=== PATIENT | male | born 1980 | race Caucasian/White ===

== ENCOUNTER 2021-10-16 19:25 | Inpatient (IN) | payer SELFPAY ==
[2021-10-16] VITALS (7 sets, daily range): BP systolic 105–131; BP diastolic 69–93; PULSE 75–88; RESP 16–20; TEMP 36.6–36.8; O2SAT 99–100; BMI 31.8
--- NOTE | 2021-10-16 19:27 | ECG_ITS ---
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
[2021-10-16] MEDS: clopidogrel 300 mg Tablet 600 MG PO (19:31)
[2021-10-16] MEDS: aspirin 325 mg Tablet PO (19:31)
[2021-10-16] MEDS: heparin 5,000 unit/mL INJ 1 mL 4000 UNIT IVP (19:31)
[2021-10-16] MEDS: sodium chloride 0.9% 500 ML 999 ML IV (19:32)
[2021-10-16] MEDS: sodium chloride 0.9% 1,000 ML 999 ML IV (19:32)
--- NOTE | 2021-10-16 19:32 | ED_ITS ---
HPI - Chest Pain General: Chief Complaint: Chest Pain Stated Complaint: STEMI Time Seen by Provider: 10/16/21 19:27 Source: patient and EMS Mode of arrival: EMS Limitations: no limitations History of Present Illness: 41-year-old male is brought here by EMS for ST elevation MO and chest pain he states been having chest pain for the last 2 to 3 hours was seen in outside clinic had an EKG that showed an inferior STEMI. Patient's been given aspirin nitro states his pain is still there but is improved is now is a 2 out of 10 no history of heart disease no vomiting no shortness of breath. Associated symptoms: Deny abdominal pain, dyspnea, fever(s), nausea or vomiting Review of Systems Const: Denies: fever(s), chills, body aches or change in appetite Eyes: Denies: blurry vision or eye discomfort ENMT: Denies: throat pain or dental pain Card: Reports: chest pain Resp: Denies: dyspnea GI: Denies: abdominal pain, nausea, vomiting or diarrhea : Denies: dysuria Musc: Denies: neck pain or back pain Skin/Breast: Denies: rash Neuro: Denies: headache(s) Psych: Denies: depression Edwar/Lymph: Denies: easy bruising All/Imm: Denies: urticaria PFSH ED PFSH: Medical History (Updated 10/16/21 @ 19:33 by Izabela Watkins MD) No pertinent past medical history Social History (Updated 10/16/21 @ 19:32 by Izabela Watkins MD) Substance/Drug Use: never Physical Exam Const: COMMON NORMALS: patient oriented x3 GENERAL APPEARANCE: in distress HENMT: COMMON NORMALS: normocephalic and atraumatic HEAD & SCALP: normocephalic and atraumatic Eye: COMMON NORMALS: Equal, round and reactive pupils present and EOMs intact bilaterally PUPIL: Yes Equal, round and reactive pupils present Neck/C-Spine: COMMON NORMALS: full ROM and supple Chest: COMMONS NORMALS: normal inspection of the chest and normal palpation of entire chest wall Resp: COMMON NORMALS: normal respiratory effort, No retractions, No use of accessory muscles and clear to auscultation bilaterally AUSCULTATION: clear to auscultation bilaterally Cardio: COMMON NORMALS: regular rate, regular rhythm and No murmurs present (Cardio) RATE: regular rate RHYTHM: regular rhythm GI: COMMON NORMALS: Normal to inspection, nondistended, normoactive bowel sounds present, Soft to palpation, non-tender and no masses PALPATION: Yes Soft to palpation Extremity: COMMON NORMALS: normal to inspection and full ROM Neuro: COMMON NORMALS: patient oriented x3, moves all extremities and no focal motor deficits Psych: COMMON NORMALS: mental status grossly normal, Normal thought process present and cooperative THOUGHT PROCESS: Normal thought process present Skin: COMMON NORMALS: no rashes or lesions noted and no wounds GENERAL SKIN EXAM: no rashes or lesions noted Course Vital Signs: Vital signs: Vital Signs Temperature 97.9 F 10/16/21 19: Pulse Rate 81 10/16/21 19: Respiratory Rate 18 10/16/21 19: Blood Pressure 131/72 10/16/21 19: Pulse Oximetry 99 10/16/21 19:26 MDM - Chest Pain Medical Decision Making Patient presents here with an ST elevation MO Civil Preparedness Training Officer was here when patient arrived he did have a delay decision making is at first he was not sure if you want to go to the Civil Preparedness Training Officer but he did decide to go and they have taken him over to the Civil Preparedness Training Officer at this time Lab Data : 10/16/21 19:30 10/16/21 19:30 Laboratory Results WBC 20.9 10^3/uL (4.0-10.0) H 10/16/21 19:30 RBC 4.93 10^6/uL (4.1-5.3) 10/16/21 19:30 Hgb 14.3 g/dL (11.7-16.6) 10/16/21 19: Hct 44.1 % (42.0-52.0) 10/16/21 19:30 MCV 89.5 fl (80-94) 10/16/21 19: MCH 29.0 pg (28.0-34.0) 10/16/21 19: MCHC 32.4 g/dL (30.0-36.0) 10/16/21 19:30 RDW 12.7 % (12.1-15.1) 10/16/21 19:30 Plt Count 453 10^3/cmm (130-400) H 10/16/21 19: MPV 9.5 fL (7.4-10.4) 10/16/21 19: Neut % (Auto) 85.9 % 10/16/21 19:30 Lymph % (Auto) 8.8 % 10/16/21 19:30 Keith % (Auto) 4.4 % 10/16/21 19:30 Eos % (Auto) 0.1 % 10/16/21 19:30 Baso % (Auto) 0.3 % 10/16/21 19: Neut # (Auto) 17.94 10^3/uL (1.8-7.7) H 10/16/21 19:30 Lymph # (Auto) 1.8 10^3/uL (0.8-4.8) 10/16/21 19: Keith # (Auto) 0.9 10^3/uL (0.2-0.9) 10/16/21 19: Eos # (Auto) 0.0 10^3/uL (0.0-0.8) 10/16/21 19: Baso # (Auto) 0.1 10^3/uL (0.0-0.1) 10/16/21 19: Nucleated RBC % (auto) 0 % 10/16/21 19: Nucleated RBCs # 0.0 /100WBC 10/16/21 19: POC Glucose 97 mg/dL (70-110) 10/16/21 19:30 Discharge Plan Discharge Patient Disposition: Admitted As Inpatient Clinical Impression: ST elevation myocardial infarction (STEMI) Qualifiers: Involved coronary artery: unspecified coronary artery Qualified Code(s): I21.3 - ST elevation (STEMI) myocardial infarction of unspecified site Coding Level of Care Code ED Bridal Sales Consultant for Christiano Fwd Exam Comprehensive
[2021-10-16 19:34] LABS: Glucose Point of Care 97 mg/dL (70-110)
--- NOTE | 2021-10-16 19:35 | XACV_ITS ---
Exam Room: 2 Ht: 185 cm Wt: 109 kg BSA: 2.40 m2 Gender: Male : 1980 Exam Priority: Routine Procedure(s): Procedure Description: Diagnostic procedure Procedure Description: PCI procedure Procedure Description: Drug Eluting Coronary Stent Procedure Description: PTCA Procedure Description: Miscellaneous Procedure Description: ACT Procedure Description: Coronary Angiography Diagnostic Cath Status: Emergency Diagnostic Findings * Left Main has no significant disease. * Left Anterior Descending has no significant disease. * Circumflex is patent. Large sized ramus artery is free of any significant disease. * Mid Right Coronary Artery: total thrombotic occlusion, PARI: 0 flow. This is the culprit vessel for STEMI. * Coronary angiography shows right dominance. PCI Status: Emergency PCI Indication: STEMI - Immediate PCI for STEMI Interventional Findings * Procedure detail: We engaged RCA with a JR4 guide catheter. IV heparin was administered to maintain ACT above 250 S. 0.014 run-through guidewire was used to cross the totally occluded mid RCA vessel. We predilated the stenosis with 2.5 x 12 mm semi compliant balloon. This was followed by placement of 4.0 x 18 mm resolute Corby drug-eluting stent. At this time final angiogram was performed that showed excellent stent expansion and no residual stenosis and PARI-3 flow. Guidewire and guide catheter were removed and patient left the Veterinary Inspector in a stable condition.. * Mid Right Coronary Artery: 100% stenosis treated with a AB TREK 2.50X12 RX BALLOON, and MDT R CORBY 4.0X18 LEV. 0% residual stenosis, PARI: 3 flow. Conclusions 1. Total thrombotic occlusion of mid RCA. 2. This is culprit vessel for ST elevation [place] 3. . S/p successful revascularization with LEV x1.. 4. Mid Right Coronary Artery was treated with a Balloon, and Drug Eluting Stent. Recommendations * Transfer to [facility]. * Aspirin and Plavix for at least 1 year. * High intensity statin therapy. * Beta-sari and CLARA inhibitor therapy. * Cardiac rehab referral. Interventional RX Recommendation: PCI w/o planned CABG Diagnostic RX Recommendation: PCI w/o planned CABG Anticoagulation: Heparin Pressures Phase:Rest AO : 135 / 90 ( 112 ) @ 3:25:06 PM 123 / -32 ( 46 ) @ 3:25:06 PM 71 / 45 ( 56 ) @ 3:25:06 PM 86 / 59 ( 76 ) @ 3:25:06 PM 96 / 67 ( 81 ) @ 3:25:06 PM Clinical Evaluation EBL: 5mL-10mL Procedural Details Pre-Procedure Time Out. Identified patient by full name and date of as verbalized by the patient/guarantor. Does the consent match the physician's order: Yes. Inpatient/Outpatient History & Physical on Chart: N/A Emergent. If H&P is completed, is and addenduem needed: N/A; If yes, is the addendum complete: N/A. Accurate & Complete Informed Consent: N/A Emergent; Informed Consent not obtained due to time critical life threat. Visualize and Verify Site with Patient/Guarantor: N/A. Relevant Radiology Images available: N/A. The risks, benefits, and alternatives of sedation and/or procedure were discussed by physician. The patient agrees to continue. Procedure started. Admit Source: Emergency department. [facility] Clinical Fraility Score: 2: Well. Veterinary Inspector Indications: New Onset Angina. Chest Pain Symptom Assessment: Typical Angina Symptoms. Correct patient, site and procedure confirmed by cath team. Current diagnosis: STEMI. PERRLA. Strong, equal hand natural resource manager bilaterally. Lungs clear x 5 lobes. IV Site on Arrival: 18 gauge in the left anticubital. IV Fluids: 0.9% NaCl at KVO. 0 mL infused prior to cath laboratory technician. Pre Procedural Pulses: right radial was 3+. Pre Procedural Pulses: right dorsalis pedis was 2+. Oxygen started at 2liters/min via nasal canula. right groin was prepped with chloroprep then draped in the usual sterile fashion. right radial was prepped with chloroprep then draped in the usual sterile fashion. Physician notified. Baseline sample Acquired. HR: 98 BPM. Physician arrived. Physician scrubbed in. Immediate Pre-Procedure Time Out. Correct Patient: Yes; Correct Procedure: Yes; Correct Site: Yes; Correct Patient Position: Yes; Correct Supplies: Yes; Dried Flammable Prep: Yes; Blood Products Available: N/A. Lidocaine 1% infiltrated to the right radial. Arterial access obtained. Delay in PCI related to initial patient/family refusal of transfer to cath laboratory technician. 6 angolan JR 4 guide catheter was inserted over the wire. Multiple views taken of right coronary artery. Runthrough guidewire was advanced through the guide catheter to lesion in the mid RCA. Inflation number : 1 A AB TREK 2.50X12 RX BALLOON was prepped and advanced across the Mid RCA , then inflated to 12 DEREK for 0:14 seconds. Balloon out. Balloon inserted to lesion in the mid RCA. Stent inserted to lesion in the mid RCA. Inflation Number : 2 A FARIDA Fraga CORBY 4.0X18 LEV -Lot Number# [id number] Exp was prepped and advanced across the Mid RCA. The stent was deployed at 12 DEREK for 0:22 seconds. Stent balloon out over wire. Results checked. Wire out. Guide catheter out. ACT drawn. Results 362 seconds. Therapeutic limits - pre-heparin administration 90-150 seconds and monitoring heparin during a vascular procedure >250 seconds. A 5 angolan TIG catheter in over wire. AP pads applied to patient chest. Multiple views taken of left coronary artery. Catheter and wire out. A TR Band was successful obtaining hemostatsis at the Right Radial artery insertion site. Physician scrubbed out. Post Procedure: Pulses reassessed and unchanged. PERRLA. Strong, equal hand natural resource manager bilaterally. No VTE prophylaxis required. Medication's Wasted: Lidocaine 1% = 8 mL. Medication's Wasted: Nitro = 50 mg. Post-op diagnosis: Inferior wall STEMI. PCI Indication: STEMI. Total IV fluids: 100 mL. Complications: none. Estimated blood loss: 5mL-10mL. Responsiveness - Normal response to verbal stimuli; alert and oriented, PERRLA. Airway - Unaffected, no intervention required; spontaneous ventilation. Circulation: W/N/L, pulses unchanged. Nausea/Vomiting: No. Procedure completed. Patient transferred by wheelchair to 1st floor. Vital chart was stopped. Access Site Site: Right Radial artery Sheath Size: 6 Fr Hemostasis Method: TR Band Hemostasis Success: Successful Procedure Medications Start: 7:47 PM Stop: 7:47 PM Medication: Versed Amount: 1 mg Route: I.V. Start: 7:47 PM Stop: 7:47 PM Medication: Fentanyl Amount: 50 mcg Route: I.V. Start: 7:49 PM Stop: 7:49 PM Medication: 0.9% Saline Amount: 75 ml/hr Start: 7:54 PM Stop: 7:54 PM Medication: Versed Amount: 1 mg Route: I.V. Start: 7:54 PM Stop: 7:54 PM Medication: Fentanyl Amount: 50 mcg Route: I.V. Start: 7:55 PM Stop: 7:55 PM Medication: Heparin Amount: 6000 units Route: I.V. Start: 7:55 PM Stop: 7:55 PM Medication: Versed Amount: 1 mg Route: I.V. Start: 7:57 PM Stop: 7:57 PM Medication: Versed Amount: 1 mg Route: I.V. Start: 8:03 PM Stop: 8:03 PM Medication: Zofran (ondansetron) Amount: 4 mg Route: I.V. Start: 8:06 PM Stop: 8:06 PM Medication: Aggrastat 12.5 mg/250 mL Amount: 55 ml Route: I.V. bolus Start: 8:07 PM Stop: 8:07 PM Medication: Aggrastat 12.5 mg/250 mL Amount: 19.8 ml/hr Route: I.VMatteo horne I, the attending physician, have reviewed and verified all procedure medications. Yes, all medications given per verbal order Report Signatures Finalized by Titus Cote MD on 11/02/2021 09:35 PM
[2021-10-16 19:40] LABS: Basophils # 0.1 10^3/uL (0.0-0.1); Basophils % 0.3 %; Eosinophils % 0.1 %; Hematocrit 44.1 % (42.0-52.0); Hemoglobin 14.3 g/dL (11.7-16.6); Lymphocytes # 1.8 10^3/uL (0.8-4.8); Lymphocytes % 8.8 %; Mean Corpuscular HGB Conc 32.4 g/dL (30.0-36.0); Mean Corpuscular Volume 89.5 fl (80-94); Mean Platelet Volume 9.5 fL (7.4-10.4); Monocytes # 0.9 10^3/uL (0.2-0.9); Monocytes % 4.4 %; Neutrophils # 17.94 10^3/uL (1.8-7.7); Neutrophils % 85.9 %; Nucleated Red Blood Cells % 0 %; Platelet Count 453 10^3/cmm (130-400); Red Blood Count 4.93 10^6/uL (4.1-5.3); Red Cell Distribution Width 12.7 % (12.1-15.1); White Blood Count 20.9 10^3/uL (4.0-10.0)
--- NOTE | 2021-10-16 19:58 | PC.NURSE ---
late note, 1929 pt was late going to laboratory apparatus glass grinder due to pt delay on whether or not to have procedure or not even upon both ER doctor and Emergency Medicine Nurse Practitioner recommendation. Pt had a 15 minute delay per pt prior to deciding to go have procedure and leaving for laboratory apparatus glass grinder at 1937.
[2021-10-16 20:03] LABS: Troponin(5th) Baseline 83 ng/L (0-15)
[2021-10-16 20:08] LABS: Alanine Aminotransferase 28 U/L (0-41); Albumin Level 4.5 g/dL (3.5-5.2); Alkaline Phosphatase 135 IU/L (40-130); Anion Gap 16.9 (5-19); Aspartate Amino Transferase 27 U/L (0-40); Blood Urea Nitrogen 11 mg/dL (6-20); Calcium 8.6 mg/dL (8.5-10.5); Carbon Dioxide 22 mmol/L (22-29); Chloride 101 mmol/L (98-107); Globulin 3.4 g/dL (1.3-4.6); Glomerular Filtration Rate 92.1 mL/min (90-130); Glucose 107 mg/dL (65-115); Osmolality Calculated 282 mOsm/kg (285-295); Potassium 3.9 mmol/L (3.5-5.1); Sodium 136 mmol/L (136-145); Total Bilirubin 0.3 mg/dL (0.15-1.2); Total Protein 7.9 g/dL (6.6-8.7)
--- NOTE | 2021-10-16 20:21 | P.HP_ITS ---
Providers/Chief Complaint Admitting Physician: Titus Cote MD Chief Complaint: STEMI History of Present Illness Avelino Lam is a 41 year old male with a past medical history of tobacco abuse and hypertension presented with few hours of chest discomfort radiating to the jaw and the ears. According to patient he had been having on and off symptoms of jaw discomfort for the last few days. Today it got worse. EMS performed EKG that showed acute inferior wall ST elevation FL. Patient was emergently brought to the ER. Patient did have some reservations about undergoing coronary angiogram and PCI however after talking with the family he decided to proceed with it. Coronary angiography showed totally occluded mid RCA. He underwent successful revascularization with LEV x1. Review of Systems Const: Denies: fever(s), chills, body aches or change in appetite Eyes: Denies: blurry vision or eye discomfort ENMT: Denies: throat pain or dental pain Card: Reports: chest pain Resp: Denies: dyspnea GI: Denies: abdominal pain, nausea, vomiting or diarrhea : Denies: dysuria Musc: Denies: neck pain or back pain Skin/Breast: Denies: rash Neuro: Denies: headache(s) Psych: Denies: depression Edwar/Lymph: Denies: easy bruising All/Imm: Denies: urticaria Medications/Allergies Allergies Allergy/AdvReac Type Severity Reaction Status Date / Time No Known Allergies Allergy Verified 10/16/21 19:30 PFSH Acute PFSH: Medical History Hypertension No pertinent past medical history Tobacco abuse Family History Other CAD (coronary artery disease) Social History Smoking and tobacco status: current every day smoker Substance/Drug Use: never Vitals/I&O/Wt Last Vital Signs Temp 97.9 F 10/16/21 19:26 Pulse 81 10/16/21 19:26 Resp 18 10/16/21 19:26 BP 131/72 10/16/21 19:26 Pulse Ox 99 10/16/21 19:26 Weight last 48 hrs Weight 241 lb Physical Exam Narrative: GENERAL: Patient is alert, awake and oriented x3. [] NECK: No jugular vein distension. [] HEENT: No cyanosis. No icterus. No pallor. [] HEART: Regular S1 and S2. No murmur, rub or gallop. [] LUNGS: Clear to auscultate bilaterally. [] ABDOMEN: Soft, nontender and nondistended. Positive bowel sounds. No guarding, rebound or tenderness. [] CENTRAL NERVOUS SYSTEM: Grossly nonfocal. [] EXTREMITIES: Lower extremities with no edema bilaterally. Pulses palpable in the lower extremities, both dorsalis pedis and posterior tibial. [] Data : 10/16/21 19:30 10/16/21 19:30 A&P Assessment and plan (1) ST elevation myocardial infarction (STEMI): Status: Acute Qualifiers: Involved coronary artery: unspecified coronary artery Qualified Code(s): I21.3 - ST elevation (STEMI) myocardial infarction of unspecified site (2) Hypertension: Status: Acute (3) Tobacco abuse: Status: Acute Plan Patient presented with acute inferior wall ST elevation FL. He underwent emergent coronary angiogram and is s/p successful revascularization with LEV x1. Patient's procedure was delayed by about 10 minutes as he initially was not sure if he wants to proceed with it. After speaking with the family, he decided to proceed. Aspirin and Plavix for atleast 1 year High intensity statin therapy Beta sari and Lisinopril Continue aggrastat for 6 hours Order echocardiogram Transfer to [facility] Attestations Medical Necessity Statement*: Care expected to cross 2 midnights. Patient had presented with acute inferior wall ST elevation FL and is status post revascularization with LEV x1. Coding Level of Care Code Acute Manager Of Transportation for Christiano Kirkpatrick Diagnoses ST elevation myocardial infarction (STEMI) I21.3 Involved coronary artery: unspecified coronary artery Hypertension I10 Tobacco abuse Z72.0
--- NOTE | 2021-10-16 21:27 | ECG_ITS ---
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 Measurements Intervals [place] Rate: 76 P: 44 ME: 152 QRS: -16 QRSD: 92 T: -28 QT: 359 QTc: 406 Interpretive Statements SINUS RHYTHM WITH OCCASIONAL SUPRAVENTRICULAR PREMATURE COMPLEXES MODERATE VOLTAGE CRITERIA FOR LVH, CONSIDER NORMAL VARIANT [MEETS CRITERIA IN ONE OF: R(aVL), S(V1), R(V5), R(V5/V6)+S(V1)] Compared to ECG 10/16/2021 21:24:44 No significant changes Electronically Signed On 10-17-2021 20:47:28 CDT by Titus Cote M.D. [id number]
[2021-10-16] MEDS: tirofiban 5 MG/100 ML PREMIX 19.8 MG IV (21:39)
[2021-10-16] MEDS: metoprolol tartrate 25 mg Tablet PO (21:39)
[2021-10-16] MEDS: sodium chloride 0.9% 1,000 ML 100 ML IV (21:39)
[2021-10-16] MEDS: atorvastatin 40 mg Tablet 80 MG PO (21:39)
[2021-10-17] VITALS (22 sets, daily range): BP systolic 91–112; BP diastolic 58–82; PULSE 72–86; RESP 7–37; O2SAT 96–99
--- NOTE | 2021-10-17 01:27 | ECG_ITS ---
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 Measurements Intervals [place] Rate: 78 P: 39 [place]: 166 QRS: -21 QRSD: 92 T: -28 QT: 361 QTc: 414 Interpretive Statements SINUS RHYTHM WITH OCCASIONAL SUPRAVENTRICULAR PREMATURE COMPLEXES MINIMAL VOLTAGE CRITERIA FOR LVH, CONSIDER NORMAL VARIANT [MEETS CRITERIA IN ONE OF: R(aVL), S(V1), R(V5), R(V5/V6)+S(V1)] Compared to ECG 10/16/2021 21:25:25 No significant changes Electronically Signed On 10-17-2021 20:44:39 CDT by Titsu Cote M.D. [id number]
--- NOTE | 2021-10-17 01:28 | USCV_ITS ---
Avelino Lam Age: 41 Gender: M : 1980 Exam Date: 10/17/2021 01:37 Ordering Phys: Titus Cote M.D ([email or web address]) Technologist: ASHA Exam Location: [facility] Indication: Post SC BP: 108 / 81 HR: 76 Rhythm: Sinus Technical Quality: Adequate MEASUREMENTS (Male / Female) Normal Values 2D ECHO LV Diastolic Diameter PLAX 5.1 cm 4.2 - 5.9 / 3.9 - 5.3 cm LV Systolic Diameter PLAX 4.0 cm IVS Diastolic Thickness 0.9 cm 0.6 - 1.0 / 0.6 - 0.9 cm IVS Systolic Thickness 1.7 cm LVPW Diastolic Thickness 1.4 cm 0.6 - 1.0 / 0.6 - 0.9 cm LVPW Systolic Thickness 1.4 cm LVOT Diameter 2.0 cm LV Ejection Fraction 2D Teich 42.3 % LV Ejection Fraction MOD 2C 32.5 % LV Ejection Fraction 2C AL 31.1 % LA Diameter 3.3 cm LA Width 3.3 cm LA Height 6.6 cm RA Width 2.9 cm RA Height 3.8 cm Aorta at Sinotubular Diameter 2.8 cm IVC Diameter 2.0 cm M-MODE Aortic Annulus Diameter 3.5 cm LA Ao Ratio MM 1.2 MV E Point Septal Separation 0.1 cm DOPPLER AV Peak Velocity 110.3 cm/s LVOT Peak Velocity 74.0 cm/s AV Area Cont Eq vti 2.1 cm squared AV Area Cont Eq pk 2.1 cm squared MV Peak Velocity 78.0 cm/s MV Area PHT 3.6 cm squared Mitral E to A Ratio 0.9 MV E' Velocity 38.0 cm/s Mitral E to MV E' Ratio 5.9 Mitral E to LV E' Lateral Ratio 5.0 Mitral E to LV E' Septal Ratio 7.4 TR Peak Velocity 80.5 cm/s TR Peak Gradient 2.6 mmHg TR Mean Velocity 51.0 cm/s TR Mean Gradient 1.2 mmHg TR Velocity Time Integral 12.3 cm Right Atrial Pressure 10.0 mmHg Pulmonary Artery Systolic Pressu 12.6 mmHg PV Peak Velocity 87.0 cm/s RV Acceleration Time 0.1 s RV Ejection Time 0.3 s RV AcT/ET 0.4 FINDINGS Left Ventricle Normal left ventricular size. LV systolic function is mildly reduced with EF of 40-45%. Mild to moderate hypokinesis of inferior and inferolateral webster. Diastolic function is normal Right Ventricle The right ventricle is normal in size and function. Right Atrium The right atrium is normal in size. Left Atrium The left atrium is normal in size. Mitral Valve Grossly normal. There is no mitral regurgitation. Aortic Valve Grossly normal. No significant stenosis. There is no aortic regurgitation. Tricuspid Valve Structurally normal tricuspid valve without significant stenosis . Trace tricuspid regurgitation. Pulmonary artery systolic pressure is normal. Pulmonic Valve Not visualized. Pericardium Normal pericardium without effusion. Aorta Normal ascending aorta dimension. CONCLUSIONS Technically limited quality echocardiogram because of poor ultrasonic windows LV systolic function is mildly reduced with EF of 40-45%. Mild to moderate hypokinesis of the inferior and inferolateral webster Diastolic function is normal Trace tricuspid regurgitation No comparison studies are available Titus Cote MD (Electronically Signed) Final Date: 18 Oct 2021 12:29 S
--- NOTE | 2021-10-17 04:15 | PC.NURSE ---
TR band removed at 0100 from right wrist. Dressing applied. No bleeding or hematoma noted. VSS. Patient educated on post-cath activity restrictions and care and verbalized understanding.
[2021-10-17 04:49] LABS: Basophils # 0.1 10^3/uL (0.0-0.1); Basophils % 0.6 %; Eosinophils # 0.3 10^3/uL (0.0-0.8); Hematocrit 43.2 % (42.0-52.0); Hemoglobin 13.1 g/dL (11.7-16.6); Lymphocytes # 3.5 10^3/uL (0.8-4.8); Mean Corpuscular HGB Conc 30.3 g/dL (30.0-36.0); Mean Corpuscular Hemoglobin 28.9 pg (28.0-34.0); Mean Corpuscular Volume 95.4 fl (80-94); Mean Platelet Volume 9.6 fL (7.4-10.4); Monocytes # 1.2 10^3/uL (0.2-0.9); Monocytes % 8.9 %; Neutrophils # 8.72 10^3/uL (1.8-7.7); Nucleated Red Blood Cells % 0 %; Platelet Count 395 10^3/cmm (130-400); Red Blood Count 4.53 10^6/uL (4.1-5.3); White Blood Count 13.9 10^3/uL (4.0-10.0)
[2021-10-17 05:23] LABS: Anion Gap 14.8 (5-19); Blood Urea Nitrogen 11 mg/dL (6-20); Calcium 8.5 mg/dL (8.5-10.5); Carbon Dioxide 20 mmol/L (22-29); Chloride 107 mmol/L (98-107); Glomerular Filtration Rate 105.5 mL/min (90-130); Glucose 118 mg/dL (65-115); Osmolality Calculated 286 mOsm/kg (285-295); Potassium 3.8 mmol/L (3.5-5.1); Sodium 138 mmol/L (136-145)
[2021-10-17] MEDS: clopidogrel 75 mg Tablet PO (08:24)
[2021-10-17] MEDS: aspirin 81 mg EC Tablet PO (08:24)
[2021-10-17] MEDS: metoprolol tartrate 25 mg Tablet PO (08:24)
[2021-10-17] MEDS: lisinopril 5 mg Tablet PO (08:24)
--- NOTE | 2021-10-17 08:25 | P.PN_ITS ---
Vitals/I&O/Wt Last Vital Signs Temp 98.2 F 10/16/21 20:32 Pulse 80 10/17/21 04:59 Resp 18 10/17/21 04:15 BP 107/78 10/17/21 04:15 Pulse Ox 96 10/17/21 04:15 10/16/21 10/17/21 10/17/21 22:59 06:59 14:59 Intake Total 1500 / 1500 1100 / 2600 Balance 1500 / 1500 1100 / 2600 Weight last 48 hrs Weight 241 lb Data : 10/17/21 04:20 10/17/21 04:20 Coding Level of Care Code Acute Glass Rolling Machine Operator for Chg Casimiro
--- NOTE | 2021-10-17 10:03 | PC.CHAP ---
Pastoral Care Encounter/Spiritual Assessment Type of Contact [] Declined housing quality standard inspector visit [] Patient/Family/Request visit [] Outpatient visit [] Follow-up visit [] Physician referral [] Code/Alert [x] Routine visit [] Staff referral [] Actively dying [] Patient sleeping [] Family support [] [] Out of room [] Palliative care [] [x] Receiving care in room [] Pre-surgical visit [] Trauma [] Long length of stay [] ICU visit [] Other: Relational/Emotional Strength [] Patient feels connected with others/family/visitors/staff [] Distress [] Loneliness/isolation [] Abandonment Spirituality of Patient [] Person of Martina [] Attends Taoism of their Martina [] Believes in Prayer [] Reads Bible or Moravian materials [] There are Spiritual issues to be addressed Child Development Professor Interventions [x] Prayer [] Active listening [] Non-anxious presence [] Spiritual/emotional support [] Crisis/trauma care [] Spiritual counseling [] Bereavement support [] Provided bereavement packet [] Provided Bible/devotional materials [] Provided toy/stuffed animal, coloring book to patient or family member [] Provided Communion [] Anointing/[place] [] Salvation [x] Completed spiritual assessment [] Other: Impact on Illness or Injury [] Angry [] Fearful [] Anxious [] Often cries [] Exhaustion [] Unable to work [] Unable to attend yazidism [] Unable to walk/stand [] Unable to read [] Unable to drive [] Unable to eat/drink [] Unable to sleep [] Unable to be with family [] Patient intubated [] Other: Summary Time spent with patient
--- NOTE | 2021-10-17 15:50 | P.DS_ITS ---
Discharge Providers Date of Admission: 10/16/21 21:00 Date of Discharge: October 17, 2021 Attending Provider at Admission: Titus Cote M.D Attending Provider at Discharge: Titus Cote M.D Diagnoses at Discharge Discharge Diagnosis (1) ST elevation myocardial infarction (STEMI): Qualifiers: Involved coronary artery: unspecified coronary artery Qualified Code(s): I21.3 - ST elevation (STEMI) myocardial infarction of unspecified site (2) Hypertension: Status: Acute (3) Tobacco abuse: Status: Acute Reason for Visit Reason for Visit: STEMI Brief History: ?41 year old male with a past medical history of tobacco abuse and hypertension presented with few hours of chest discomfort radiating to the jaw and the ears.? According to patient he had been having on and off symptoms of jaw discomfort for the last few days.? Today it got worse.? EMS performed EKG that showed acute inferior wall ST elevation LA.? Patient was emergently brought to the ER.? Hospital Course Hospital Course ?41 year old male with a past medical history of tobacco abuse and hypertension presented with few hours of chest discomfort radiating to the jaw and the ears.? According to patient he had been having on and off symptoms of jaw discomfort for the last few days.? Today it got worse.? EMS performed EKG that showed acute inferior wall ST elevation LA.? Patient was emergently brought to the ER.? Patient did have some reservations about undergoing coronary angiogram and PCI however after talking with the family he decided to proceed with it.? Coronary angiography showed totally occluded mid RCA.? He underwent successful revascularization with LEV x1. Patient was stable post PCI. Echocardiogram showed mildly reduced LV systolic function. Plan was to keep him for 1 more day however he wanted to go home and was stable. Was discharged home in a stable condition on dual antiplatelet therapy and outpatient cardiology follow-up. Physical Exam Narrative: GENERAL: Patient is alert, awake and oriented x3. [] NECK: No jugular vein distension. [] HEENT: No cyanosis. No icterus. No pallor. [] HEART: Regular S1 and S2. No murmur, rub or gallop. [] LUNGS: Clear to auscultate bilaterally. [] ABDOMEN: Soft, nontender and nondistended. Positive bowel sounds. No guarding, rebound or tenderness. [] CENTRAL NERVOUS SYSTEM: Grossly nonfocal. [] EXTREMITIES: Lower extremities with no edema bilaterally. Pulses palpable in the lower extremities, both dorsalis pedis and posterior tibial. [] Discharge Data Studies Completed and Pending Pending at discharge Category Date Time Status [employer] request for service Stat Exams 10/16/21 19:35 Taken Basic Metabolic Panel AM LABS Lab 10/18/21 04:00 Ordered Basic Metabolic Panel AM LABS Lab 10/19/21 04:00 Ordered Complete Blood Count w/Auto AM LABS Lab 10/18/21 04:00 Ordered Complete Blood Count w/Auto AM LABS Lab 10/19/21 04:00 Ordered CV. echo complete* [id number] Routine Ultrasound 10/17/21 01:28 Taken Laboratory Results WBC 13.9 10^3/uL (4.0-10.0) H 10/17/21 04:20 RBC 4.53 10^6/uL (4.1-5.3) 10/17/21 04:20 Hgb 13.1 g/dL (11.7-16.6) 10/17/21 04:20 Hct 43.2 % (42.0-52.0) 10/17/21 04:20 MCV 95.4 fl (80-94) H D 10/17/21 04:20 MCH 28.9 pg (28.0-34.0) 10/17/21 04:20 MCHC 30.3 g/dL (30.0-36.0) D 10/17/21 04:20 RDW 13.0 % (12.1-15.1) 10/17/21 04:20 Plt Count 395 10^3/cmm (130-400) 10/17/21 04:20 MPV 9.6 fL (7.4-10.4) 10/17/21 04:20 Neut % (Auto) 63.0 % 10/17/21 04:20 Lymph % (Auto) 25.0 % 10/17/21 04:20 [place] % (Auto) 8.9 % 10/17/21 04:20 Eos % (Auto) 2.0 % 10/17/21 04:20 Baso % (Auto) 0.6 % 10/17/21 04:20 Neut # (Auto) 8.72 10^3/uL (1.8-7.7) H 10/17/21 04:20 Lymph # (Auto) 3.5 10^3/uL (0.8-4.8) 10/17/21 04:20 [place] # (Auto) 1.2 10^3/uL (0.2-0.9) H 10/17/21 04:20 Eos # (Auto) 0.3 10^3/uL (0.0-0.8) 10/17/21 04:20 Baso # (Auto) 0.1 10^3/uL (0.0-0.1) 10/17/21 04:20 Nucleated RBC % (auto) 0 % 10/17/21 04:20 Nucleated RBCs # 0.0 /100WBC 10/17/21 04:20 Sodium 138 mmol/L (136-145) 10/17/21 04:20 Potassium 3.8 mmol/L (3.5-5.1) 10/17/21 04:20 Chloride 107 mmol/L (98-107) 10/17/21 04:20 Carbon Dioxide 20 mmol/L (22-29) L 10/17/21 04:20 Anion Gap 14.8 (5-19) 10/17/21 04:20 BUN 11 mg/dL (6-20) 10/17/21 04:20 Creatinine 0.8 mg/dL (0.7-1.2) 10/17/21 04:20 GFR Calculation 105.5 mL/min (90-130) 10/17/21 04:20 Glucose 118 mg/dL (65-115) H 10/17/21 04:20 POC Glucose 97 mg/dL (70-110) 10/16/21 19:30 Calculated Osmolality 286 mOsm/kg (285-295) 10/17/21 04:20 Calcium 8.5 mg/dL (8.5-10.5) 10/17/21 04:20 Total Bilirubin 0.3 mg/dL (0.15-1.2) 10/16/21 19:30 AST 27 U/L (0-40) 10/16/21 19:30 ALT 28 U/L (0-41) 10/16/21 19:30 Alkaline Phosphatase 135 IU/L (40-130) H 10/16/21 19:30 Troponin T Baseline 83 ng/L (0-15) H 10/16/21 19:30 Total Protein 7.9 g/dL (6.6-8.7) 10/16/21 19:30 Albumin 4.5 g/dL (3.5-5.2) 10/16/21 19:30 Globulin 3.4 g/dL (1.3-4.6) 10/16/21 19:30 Vitals Last Vital Signs Temp 98.2 F 10/16/21 20:32 Pulse 78 10/17/21 14:00 Resp 13 10/17/21 08:00 BP 112/68 10/17/21 08:00 Pulse Ox 96 10/17/21 04:15 Discharge Plan Discharge Patient Disposition: Home Condition: Stable Prescriptions: New atorvastatin 40 mg Tablet 80 mg PO BEDTIME Qty: 90 3RF clopidogrel 75 mg Tablet 75 mg PO DAILY Qty: 90 3RF aspirin 81 mg Tablet,Delayed Release (Dr/Ec) 81 mg PO DAILY Qty: 90 3RF lisinopril 5 mg Tablet 5 mg PO DAILY Qty: 90 3RF metoprolol tartrate 25 mg Tablet 25 mg PO BID@0900,2100 Qty: 90 3RF Discharge Orders: Discharge Order (Routine); Ordered 10/17/21 Ordered By: Titus Cote Referrals: Titus Cote M.D [Physician] - 1 month ([facility] will be calling to schedule a cardiology followup with Dr. Cote to be seen in approx 1 month, If you don't hear from them by Wednesday afternoon, pleasee give them a call. Thank you) Rosa Bell FNP [Nurse Practitioner] - 7-10 days ([facility] will be calling to schedule a post procedure followup with LACEY Jim to be seen in 7 to 10 days, If you don't hear from them by Wednesday afternoon, pleasee give them a call. Thank you) Discharge Diet: Cardiac Discharge Activity: Increase activity as tolerated Patient Instructions: Metoprolol (By mouth) (Lopressor, Toprol XL), Lisinopril (By mouth) (Prinivil, Zestril), Aspirin (By mouth) (Ricardo Extra Strength, Ricardo Aspirin Children's,..., Atorvastatin (By mouth) (Lipitor), Clopidogrel (By mouth) (Plavix), Coronary Angioplasty (DC) Activity Restrictions/Additional Instructions: Please do not lift more than 5-10 pounds of weight for the next 5 days Discharge Attestations Time Spent in Discharge Care*: greater than 30 min Quality Metrics Clinical Quality Measures [ Acute Myocardial Infaction { Clinical Trial Participant: No; Contraindication to aspirin: None; Aspirin prescribed; Contraindication to statin: None; Statin prescribed; Contraindication to PCI: None; PCI performed;}] Coding Level of Care Code Acute Chg FW DC note Diagnoses ST elevation myocardial infarction (STEMI) I21.3 Involved coronary artery: unspecified coronary artery Hypertension I10 Tobacco abuse Z72.0
== END 2021-10-17 17:00 | disposition home or self-care (01) | DRG 247 ==
LOC: ER 19:33 → CCL 19:44 → CSU 21:01
PROVIDERS: Admitting Provider Internal Medicine; Emergency Provider Emergency Medicine; Visit Provider Internal Medicine
DX: I21.11 ST elevation (STEMI) myocardial infarction involving right coronary artery (principal); I10 Essential (primary) hypertension; F17.200 Nicotine dependence, unspecified, uncomplicated
CPT/HCPCS: 36415; 36416; 80048; 80053; 82962; 84484; 85025; 85347; 93005; 93306; 93454; 99152; 99153; 99285; C1725; C1769; C1874; C1887; C1894; C9600; J1644; J2250; J2405; J3010; J3490; J7030; J7040; Q9967

== ENCOUNTER → 2021-10-29 11:37 | Outpatient (BNVA) | payer SELFPAY | PROVIDERS: Visit Provider Nurse Practitioner Family | DX: Z09 Encounter for follow-up examination after completed treatment for conditions other than malignant neoplasm (principal); I21.3 ST elevation (STEMI) myocardial infarction of unspecified site | CPT/HCPCS: 80048 ==

== ENCOUNTER 2022-04-11 14:34 | Emergency (ER) | payer SELFPAY ==
[2022-04-11 14:35] VITALS: BMI 34.2
[2022-04-11 14:39] VITALS: BP 156/107; PULSE 65; RESP 18; TEMP 36.4; O2SAT 100
--- NOTE | 2022-04-11 14:40 | XRR_ITS ---
PROCEDURE INFORMATION: Exam: XR Chest Exam date and time: 04/11/2022 2:50 PM Age: 41 years old Clinical indication: Pain; Chest pressure; Additional info: Cp TECHNIQUE: Imaging protocol: Radiologic exam of the chest. Views: 1 view. COMPARISON: No relevant prior studies available. FINDINGS: Single AP upright view submitted. Lungs: Ill-defined patchy opacity in the lateral left lung base suggesting atelectasis versus developing pneumonia. Clinical correlation follow-up exam should be obtained. Comparison prior exam may also be helpful if available. Right lung is grossly clear. Pleural spaces: Unremarkable. No pleural effusion. No pneumothorax. Heart/Mediastinum: Cardiac silhouette size appears somewhat magnified by technique but is probably normal in size. No vascular congestion. Bones/joints: No acute findings. XR/XR chest 1V portable [id number] IMPRESSION: Patchy left basilar opacity. See discussion above.
--- NOTE | 2022-04-11 14:41 | ECG_ITS ---
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 Measurements Intervals [place] Rate: 69 P: 40 DE: 194 QRS: 9 QRSD: 93 T: 9 QT: 381 QTc: 411 Interpretive Statements SINUS RHYTHM Compared to ECG 10/17/2021 01:26:20 No significant changes Electronically Signed On 04-11-2022 15:44:36 CDT by Zeynep Ricks M.D. [id number]
--- NOTE | 2022-04-11 15:18 | W.ED.CHESTPA ---
HPI - Chest Pain General: Chief Complaint: Chest Pain Stated Complaint: cp Time Seen by Provider: 04/11/22 14:44 Source: patient Mode of arrival: ambulatory Limitations: no limitations History of Present Illness: 41-year-old male who who states has been having back and chest pain over the last 4 days he states he moved a heavy bed 4 days ago started having sharp back pain since then that is worse with palpation movement he states that pain seems to wrap around to his chest he denies any worsening improving factors currently states pain to 2 out of 10 denies any shortness of breath diaphoresis PFS ED PFSH: Medical History Hypertension No pertinent past medical history ST elevation myocardial infarction (STEMI) Tobacco abuse Family History Other CAD (coronary artery disease) Social History Smoking and tobacco status: current some day smoker (working on quitting) Physical Exam Const: COMMON NORMALS: no acute distress, patient oriented x3 and healthy appearing HENMT: COMMON NORMALS: normocephalic and atraumatic HEAD & SCALP: normocephalic and atraumatic Eye: COMMON NORMALS: Equal, round and reactive pupils present and EOMs intact bilaterally PUPIL: Yes Equal, round and reactive pupils present Neck/C-Spine: COMMON NORMALS: full ROM and supple Chest: COMMONS NORMALS: normal inspection of the chest and normal palpation of entire chest wall Resp: COMMON NORMALS: normal respiratory effort, No retractions, No use of accessory muscles and clear to auscultation bilaterally AUSCULTATION: clear to auscultation bilaterally Cardio: COMMON NORMALS: regular rate, regular rhythm and No murmurs present (Cardio) RATE: regular rate RHYTHM: regular rhythm GI: COMMON NORMALS: Normal to inspection, nondistended, normoactive bowel sounds present, Soft to palpation, non-tender and no masses PALPATION: Yes Soft to palpation Extremity: COMMON NORMALS: normal to inspection and full ROM Neuro: COMMON NORMALS: patient oriented x3, moves all extremities and no focal motor deficits Psych: COMMON NORMALS: mental status grossly normal, Normal thought process present and cooperative THOUGHT PROCESS: Normal thought process present Skin: COMMON NORMALS: no rashes or lesions noted and no wounds GENERAL SKIN EXAM: no rashes or lesions noted Course Vital Signs: Vital signs: Vital Signs Temperature 98.1 F 04/11/22 16:36 Pulse Rate 73 04/11/22 16:36 Respiratory Rate 16 04/11/22 16:36 Blood Pressure 114/83 04/11/22 16:36 Pulse Oximetry 100 04/11/22 16:36 Oxygen Delivery Me thod 04/11/22 14:39 MDM - Chest Pain Medical Decision Making Patient presents for chest pain that is likely muscular he is point tender on his back his pain radiates from his back likely from lifting beds. 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 Pineda on Wednesday I feel he is stable for discharge he is to follow-up his PCP and return if worsening he understands agrees to plan. Lab Data : 04/11/22 15:10 04/11/22 15:10 Radiology Impressions Chest X-Ray 04/11/22 14:40 IMPRESSION: Patchy left basilar opacity. See discussion above. Laboratory Results WBC 11.4 10^3/uL (4.0-10.0) H 04/11/22 15:10 RBC 5.16 10^6/uL (4.1-5.3) 04/11/22 15:10 Hgb 14.9 g/dL (11.7-16.6) 04/11/22 15:10 Hct 46.9 % (42.0-52.0) 04/11/22 15:10 MCV 90.9 fl (80-94) 04/11/22 15:10 MCH 28.9 pg (28.0-34.0) 04/11/22 15:10 MCHC 31.8 g/dL (30.0-36.0) 04/11/22 15:10 RDW 12.7 % (12.1-15.1) 04/11/22 15:10 Plt Count 450 10^3/cmm (130-400) H 04/11/22 15:10 MPV 9.3 fL (7.4-10.4) 04/11/22 15:10 Neut % (Auto) 64.3 % 04/11/22 15:10 Lymph % (Auto) 22.1 % 04/11/22 15:10 [place] % (Auto) 8.9 % 04/11/22 15:10 Eos % (Auto) 3.6 % 04/11/22 15:10 Baso % (Auto) 0.6 % 04/11/22 15:10 Neut # (Auto) 7.32 10^3/uL (1.8-7.7) 04/11/22 15:10 Lymph # (Auto) 2.5 10^3/uL (0.8-4.8) 04/11/22 15:10 [place] # (Auto) 1.0 10^3/uL (0.2-0.9) H 04/11/22 15:10 Eos # (Auto) 0.4 10^3/uL (0.0-0.8) 04/11/22 15:10 Baso # (Auto) 0.1 10^3/uL (0.0-0.1) 04/11/22 15:10 Nucleated RBC % (auto) 0 % 04/11/22 15:10 Nucleated RBCs # 0.0 /100WBC 04/11/22 15:10 Sodium 141 mmol/L (136-145) 04/11/22 15:10 Potassium 4.0 mmol/L (3.5-5.1) 04/11/22 15:10 Chloride 102 mmol/L (98-107) 04/11/22 15:10 Carbon Dioxide 25 mmol/L (22-29) 04/11/22 15:10 Anion Gap 18.0 (5-19) 04/11/22 15:10 BUN 12 mg/dL (6-20) 04/11/22 15:10 Creatinine 0.9 mg/dL (0.7-1.2) 04/11/22 15:10 GFR Calculation 92.1 mL/min (90-130) 04/11/22 15:10 Glucose 84 mg/dL (65-115) 04/11/22 15:10 Calculated Osmolality 291 mOsm/kg (285-295) 04/11/22 15:10 Calcium 9.4 mg/dL (8.5-10.5) 04/11/22 15:10 Total Bilirubin 0.6 mg/dL (0.15-1.2) 04/11/22 15:10 AST 15 U/L (0-40) 04/11/22 15:10 ALT 24 U/L (0-41) 04/11/22 15:10 Alkaline Phosphatase 182 U/L (40-130) H 04/11/22 15:10 Troponin T Baseline 11 ng/L (0-15) 04/11/22 15:10 Total Protein 8.3 g/dL (6.6-8.7) 04/11/22 15:10 Albumin 4.7 g/dL (3.5-5.2) 04/11/22 15:10 Globulin 3.6 g/dL (1.3-4.6) 04/11/22 15:10 EKG Data EKG 1: I personally reviewed and interpreted this EKG as follows: EKG interpretation date: 04/11/22 EKG interpretation time: 14:41 Interpretation: nsr hr [address] or t wave abnormalities qrs 93 qtc 401 Discharge Plan Discharge Patient Disposition: Home Clinical Impression: Chest pain Condition: Stable Prescriptions: New Naprosyn 500 mg tablet 500 mg PO BID PRN (Reason: pain) Qty: 20 0RF No Action nitroglycerin 0.4 mg tablet, sublingual 0.4 mg sublingual Q5M PRN (Reason: chest pain) Qty: 30 3RF Rx Instructions: do not exceed 3 doses per episode clopidogrel 75 mg tablet 75 mg PO DAILY Qty: 90 3RF lisinopril 5 mg tablet 5 mg PO DAILY Qty: 90 3RF metoprolol tartrate 25 mg tablet 25 mg PO BID@0900,2100 Qty: 90 3RF aspirin 81 mg Tablet,Delayed Release (Dr/Ec) 81 mg PO DAILY Qty: 90 3RF atorvastatin 40 mg tablet 80 mg PO DAILY Discharge Orders: Discharge ED (Routine); Ordered 04/11/22 Ordered By: Izabela Watkins Discharge Diet: Advance as tolerated Discharge Activity: Resume usual activity Patient Instructions: Chest Pain (ED) Coding Level of Care Code ED Plastic Duplicator for Alleng Fwd Exam Comprehensive
[2022-04-11 15:25] LABS: Basophils # 0.1 10^3/uL (0.0-0.1); Basophils % 0.6 %; Eosinophils # 0.4 10^3/uL (0.0-0.8); Eosinophils % 3.6 %; Hematocrit 46.9 % (42.0-52.0); Hemoglobin 14.9 g/dL (11.7-16.6); Lymphocytes # 2.5 10^3/uL (0.8-4.8); Lymphocytes % 22.1 %; Mean Corpuscular HGB Conc 31.8 g/dL (30.0-36.0); Mean Corpuscular Hemoglobin 28.9 pg (28.0-34.0); Mean Corpuscular Volume 90.9 fl (80-94); Mean Platelet Volume 9.3 fL (7.4-10.4); Monocytes % 8.9 %; Neutrophils # 7.32 10^3/uL (1.8-7.7); Neutrophils % 64.3 %; Nucleated Red Blood Cells % 0 %; Platelet Count 450 10^3/cmm (130-400); Red Blood Count 5.16 10^6/uL (4.1-5.3); Red Cell Distribution Width 12.7 % (12.1-15.1); White Blood Count 11.4 10^3/uL (4.0-10.0)
[2022-04-11 15:45] LABS: Alanine Aminotransferase 24 U/L (0-41); Albumin Level 4.7 g/dL (3.5-5.2); Alkaline Phosphatase 182 U/L (40-130); Aspartate Amino Transferase 15 U/L (0-40); Blood Urea Nitrogen 12 mg/dL (6-20); Calcium 9.4 mg/dL (8.5-10.5); Carbon Dioxide 25 mmol/L (22-29); Chloride 102 mmol/L (98-107); Globulin 3.6 g/dL (1.3-4.6); Glomerular Filtration Rate 92.1 mL/min (90-130); Glucose 84 mg/dL (65-115); Osmolality Calculated 291 mOsm/kg (285-295); Sodium 141 mmol/L (136-145); Total Bilirubin 0.6 mg/dL (0.15-1.2); Total Protein 8.3 g/dL (6.6-8.7)
[2022-04-11 15:46] LABS: Troponin(5th) Baseline 11 ng/L (0-15)
[2022-04-11 16:36] VITALS: BP 114/83; PULSE 73; RESP 16; TEMP 36.7; O2SAT 100
== END 2022-04-11 16:30 | disposition home or self-care (01) ==
PROVIDERS: Emergency Provider Emergency Medicine
DX: R07.9 Chest pain, unspecified (principal); F17.200 Nicotine dependence, unspecified, uncomplicated
CPT/HCPCS: 71045; 80053; 84484; 85025; 93005; 99285